=== PATIENT | male | born 1955 | race African-American/Black ===

== ENCOUNTER 2019-05-17 16:28 | Emergency (ER) | payer MEDICAID ==
[~2019-05-17] VITALS: Ht 177.8 cm; Wt 72.7 kg
[~2019-05-17 16:28] MED LIST: ASPI-817 PO; ATOR-2 PO; DOXA2TAB PO; INSU100I33 SC; LINA5TAB PO; LOSA50TA14 PO; METF100010 PO; PANT40TA4 PO
[2019-05-17 16:37] VITALS: Ht 177.8 cm; Wt 72.7 kg
[2019-05-18 05:45] VITALS: BP 129/75; PULSE 81; RESP 18
== END 2019-05-18 05:45 | disposition home or self-care (01) ==
LOC: E/R 16:28
DX: E11.649 Type 2 diabetes mellitus with hypoglycemia without coma (principal); F17.210 Nicotine dependence, cigarettes, uncomplicated; Z79.4 Long term (current) use of insulin; Z79.82 Long term (current) use of aspirin
CPT/HCPCS: 36415; 80048; 82962; 85025; L3260; Z7502; 99283